=== PATIENT | female | born 1985 | race Caucasian/White ===

== ENCOUNTER 2025-05-25 12:09 | Emergency (ER) | payer MEDICAID ==
[~2025-05-25] VITALS: Ht 165.1 cm; Wt 68.0 kg
[~2025-05-25 12:09] MED LIST: HYDR2VIA2 IV; HYDR4TAB4 PO; ONDA4SYR IV; RIME75TA PO
[2025-05-25] MEDS ORDERED: HYDROMORPHONE 2 MG/1 ML DISP.SYRIN ONE ×2 (12:59→14:06)
[2025-05-25] MEDS ORDERED: ONDANSETRON 4 MG/2 ML VIAL ONE ×2 (12:59→14:06)
[2025-05-25] MEDS: HYDROMORPHONE 1 MG/1 ML DISP.SYRIN IV ONE ×2 (13:01→14:10)
[2025-05-25] MEDS: IV NORMAL SALINE 1000 ML BAG IV ONE (13:01)
[2025-05-25] MEDS: ONDANSETRON 4 MG/2 ML VIAL IV ONE ×2 (13:02→14:10)
[2025-05-25 13:11] LABS: *OCCULT BLOOD STOOL NEGATIVE (NEGATIVE)
[2025-05-25 13:12] LABS: PLATELET COUNT (AUTO) 247 K/uL (179-408); RED BLOOD CELL COUNT(AUTO) 4.06 MIL/uL (3.63-4.92); RED CELL DISTRIBUTION WIDTH 16.7 % (12.3-17.7); WHITE BLOOD COUNT (AUTO) 3.9 K/uL (3.8-11.8)
[2025-05-25] MEDS ORDERED: diphenhydrAMINE 50 MG/1 ML VIAL ONE ×2 (13:13→14:22)
[2025-05-25] MEDS ORDERED: FAMOTIDINE. 20 MG/2 ML VIAL IV ONE (13:13)
[2025-05-25] MEDS: FAMOTIDINE. 20 MG/2 ML VIAL IV ONE (13:18)
[2025-05-25] MEDS: diphenhydrAMINE 50 MG/1 ML VIAL IV ONE ×2 (13:18→14:24)
[2025-05-25 13:19] LABS: CREATININE 0.6 mg/dL (0.6-1.3); SODIUM SERUM 140 mmol/L (136-145); UREA NITROGEN, BLOOD 14 mg/dL (7-18)
[2025-05-25 13:25] LABS: ASPARTATE AMINOTRANSFERASE 22 U/L (15-37); TOTAL PROTEIN, SERUM 6.6 g/dL (6.4-8.2)
[2025-05-25 14:00] VITALS: BP 112/84
[2025-05-25] MEDS ORDERED: HYDR1LIQ PO (14:12)
[2025-05-25] MEDS ORDERED: [UNRECOGNIZED DRUG - CODE] RC (15:01)
[2025-05-25] MEDS ORDERED: DIAZ5TAB PR (15:04)
[2025-05-25 15:24] VITALS: BP 112/84; TEMP 98.5; O2SAT 99
== END 2025-05-25 15:10 | disposition home or self-care (01) ==
LOC: ER 12:09
DX: R10.9 Unspecified abdominal pain (principal); R19.7 Diarrhea, unspecified; R11.0 Nausea; C50.919 Malignant neoplasm of unspecified site of unspecified female breast; Z79.891 Long term (current) use of opiate analgesic; Z88.1 Allergy status to other antibiotic agents; Z88.6 Allergy status to analgesic agent; Z87.19 Personal history of other diseases of the digestive system; Z87.448 Personal history of other diseases of urinary system; Z87.42 Personal history of other diseases of the female genital tract; Z88.8 Allergy status to other drugs, medicaments and biological substances
CPT/HCPCS: 99284; 96374; 96375; 96361; 82272; 80076; 80048; 86625; 85025; 87493; 87046; 84484; 89055; 36415; 93005; 96376; 87015; 87899; 87427; J1200 ×2; J1308; J2405 ×2; J1171 ×2; J7040; A4606; A4663

== ENCOUNTER 2025-06-14 13:10 | Emergency (ER) | payer MEDICAID ==
[~2025-06-14] VITALS: Ht 165.1 cm; Wt 68.0 kg
[~2025-06-14 13:10] MED LIST changes: +DIAZ5TAB PR; +HYDR1LIQ PO; +[UNRECOGNIZED DRUG - CODE] RC
[2025-06-14] MEDS ORDERED: ONDANSETRON 4 MG/2 ML VIAL ONE ×2 (13:44→15:13)
[2025-06-14] MEDS ORDERED: HYDROMORPHONE 2 MG/1 ML DISP.SYRIN ONE ×2 (13:44→15:13)
[2025-06-14 13:45] LABS: PLATELET COUNT (AUTO) 182 K/uL (179-408); RED BLOOD CELL COUNT(AUTO) 3.44 MIL/uL (3.63-4.92); RED CELL DISTRIBUTION WIDTH 18.9 % (12.3-17.7); WHITE BLOOD COUNT (AUTO) 4.0 K/uL (3.8-11.8)
[2025-06-14 13:50] LABS: *BILIRUBIN,URIN NEGATIVE (NEGATIVE); *BLOOD, URINE 1+ (NEGATIVE); *CLARITY,URINE CLEAR (CLEAR); *COLOR,URINE YELLOW (YELLOW); *KETONES,URINE TRACE (NEGATIVE); *PROTEIN,URINE NEGATIVE (NEGATIVE); *UROBILINOGEN,URINE 0.2 E.U./dl (NORMAL); LEUKOCYTE ESTERASE ,URINE TRACE (NEGATIVE); NITRITE, URINE NEGATIVE (NEGATIVE); UGLUCOSE NEGATIVE (NEGATIVE)
[2025-06-14] MEDS: ONDANSETRON 4 MG/2 ML VIAL IV ONE ×3 (13:53→15:32)
[2025-06-14] MEDS: HYDROMORPHONE 1 MG/1 ML DISP.SYRIN IV ONE ×3 (13:53→15:32)
[2025-06-14] MEDS: IV NORMAL SALINE 1000 ML BAG IV ONE (13:53)
[2025-06-14 14:01] LABS: SQUAMOUS EPITHELIAL CELL,UR MODERATE /HPF (NONE SEEN)
[2025-06-14 14:08] LABS: CREATININE 0.9 mg/dL (0.6-1.3); SODIUM SERUM 141.0 mmol/L (136-145); UREA NITROGEN, BLOOD 17.0 mg/dL (7-18)
[2025-06-14] MEDS ORDERED: diphenhydrAMINE 50 MG/1 ML VIAL ONE ×2 (14:16→17:11)
[2025-06-14] MEDS: diphenhydrAMINE 50 MG/1 ML VIAL IV ONE ×2 (14:18→17:17)
[2025-06-14] MEDS ORDERED: CEFTRIAXONE /D5W 50ML IVPB **ER PYXIS IV ONE (14:20)
[2025-06-14 15:11] VITALS: BP 120/65
[2025-06-14] MEDS ORDERED: FAMOTIDINE. 20 MG/2 ML VIAL IV ONE (17:11)
[2025-06-14] MEDS: FAMOTIDINE. 20 MG/2 ML VIAL IV ONE (17:17)
[2025-06-14] MEDS ORDERED: ONDA4TAB11 PO (17:29)
[2025-06-14 17:38] VITALS: BP 123/61; O2SAT 97
== END 2025-06-14 17:38 | disposition home or self-care (01) ==
LOC: ER 13:10
DX: N39.0 Urinary tract infection, site not specified (principal); G89.4 Chronic pain syndrome; D64.9 Anemia, unspecified; R07.2 Precordial pain; R00.0 Tachycardia, unspecified; Z87.19 Personal history of other diseases of the digestive system; Z85.3 Personal history of malignant neoplasm of breast; Z88.1 Allergy status to other antibiotic agents; Z88.6 Allergy status to analgesic agent; Z88.8 Allergy status to other drugs, medicaments and biological substances; Z87.448 Personal history of other diseases of urinary system; Z87.42 Personal history of other diseases of the female genital tract
CPT/HCPCS: 99285; 96365; 96375; 96361; 71045; 80048; 81001; 85025; 87040; 87086; 36415; 93005; 96376; J0696; J1200 ×2; J1308; J2405 ×2; J1171 ×2; J7040; A4606; A4663

== ENCOUNTER 2025-08-19 15:24 | Emergency (ER) | payer OTHER ==
[~2025-08-19] VITALS: Ht 165.1 cm; Wt 70.3 kg
[~2025-08-19 15:24] MED LIST changes: +ONDA4TAB11 PO; +PROM12.512 RC
[2025-08-19] MEDS ORDERED: ONDANSETRON 4 MG/2 ML VIAL ONE ×2 (16:58→18:19)
[2025-08-19] MEDS ORDERED: HYDROMORPHONE 2 MG/1 ML DISP.SYRIN ONE ×2 (16:58→18:19)
[2025-08-19] MEDS ORDERED: diphenhydrAMINE 50 MG/1 ML VIAL ONE (16:58)
[2025-08-19] MEDS: diphenhydrAMINE 50 MG/1 ML VIAL IV ONE (17:07)
[2025-08-19] MEDS: HYDROMORPHONE 1 MG/1 ML DISP.SYRIN IV ONE ×2 (17:07→18:21)
[2025-08-19] MEDS: ONDANSETRON 4 MG/2 ML VIAL IV ONE ×2 (17:08→18:19)
[2025-08-19] MEDS ORDERED: DIAZEPAM 10 MG/2 ML DISP.SYRIN ONE (17:36)
[2025-08-19] MEDS: DIAZEPAM 10 MG/2 ML DISP.SYRIN IV ONE (17:38)
[2025-08-19 18:10] VITALS: BP 123/79
[2025-08-19] MEDS ORDERED: DIAZ5TAB4 PO ×2 (18:37→21:18)
[2025-08-19] MEDS ORDERED: HYDR2TAB4 PO ×2 (18:37→21:18)
[2025-08-19 19:17] VITALS: BP 122/80; O2SAT 98
== END 2025-08-19 19:18 | disposition home or self-care (01) ==
LOC: ER 15:34
DX: G43.909 Migraine, unspecified, not intractable, without status migrainosus (principal); R10.31 Right lower quadrant pain; D64.9 Anemia, unspecified; K51.90 Ulcerative colitis, unspecified, without complications; K85.90 Acute pancreatitis without necrosis or infection, unspecified; M32.9 Systemic lupus erythematosus, unspecified; Z85.3 Personal history of malignant neoplasm of breast; Z87.19 Personal history of other diseases of the digestive system; Z88.1 Allergy status to other antibiotic agents; Z88.6 Allergy status to analgesic agent
CPT/HCPCS: 99284; 96374; 96375; 96376; J2919; J3360; J1200; J2405 ×2; J1171 ×2; A4606; A4663

== ENCOUNTER 2025-08-21 15:19 | Emergency (ER) | payer OTHER ==
[~2025-08-21] VITALS: Ht 165.1 cm; Wt 70.3 kg
[~2025-08-21 15:19] MED LIST changes: +DIAZ5TAB4 PO; +HYDR2TAB4 PO
[2025-08-21 15:46] VITALS: BP 121/88
[2025-08-21] MEDS ORDERED: diphenhydrAMINE 50 MG/1 ML VIAL ONE (18:14)
[2025-08-21] MEDS ORDERED: HYDROMORPHONE 2 MG/1 ML DISP.SYRIN ONE (18:15)
[2025-08-21] MEDS ORDERED: FAMOTIDINE. 20 MG/2 ML VIAL IV ONE (18:15)
[2025-08-21] MEDS: HYDROMORPHONE 1 MG/1 ML DISP.SYRIN IV ONE (18:21)
[2025-08-21] MEDS: diphenhydrAMINE 50 MG/1 ML VIAL IV ONE (18:21)
[2025-08-21] MEDS: FAMOTIDINE. 20 MG/2 ML VIAL IV ONE (18:22)
[2025-08-21] MEDS ORDERED: DIAZ5TAB PO (18:34)
[2025-08-21] MEDS ORDERED: HYDR2TAB4 PO (18:34)
[2025-08-21 18:43] LABS: PLATELET COUNT (AUTO) 202 K/uL (179-408); RED BLOOD CELL COUNT(AUTO) 3.79 MIL/uL (3.63-4.92); RED CELL DISTRIBUTION WIDTH 18.3 % (12.3-17.7); WHITE BLOOD COUNT (AUTO) 5.1 K/uL (3.8-11.8)
[2025-08-21] MEDS ORDERED: DIAZEPAM 10 MG/2 ML DISP.SYRIN ONE (18:45)
[2025-08-21] MEDS: DIAZEPAM 10 MG/2 ML DISP.SYRIN IV ONE (18:47)
[2025-08-21 18:54] LABS: ASPARTATE AMINOTRANSFERASE 19.0 U/L (15-37); CREATININE 0.7 mg/dL (0.6-1.3); SODIUM SERUM 143.0 mmol/L (136-145); TOTAL PROTEIN, SERUM 6.5 g/dL (6.4-8.2); UREA NITROGEN, BLOOD 22.0 mg/dL (7-18)
[2025-08-21 19:39] VITALS: BP 121/88; O2SAT 99
== END 2025-08-21 19:39 | disposition home or self-care (01) ==
LOC: ER 15:19
DX: K86.1 Other chronic pancreatitis (principal); R10.9 Unspecified abdominal pain; G43.909 Migraine, unspecified, not intractable, without status migrainosus; G89.29 Other chronic pain; Z85.3 Personal history of malignant neoplasm of breast; Z87.19 Personal history of other diseases of the digestive system; Z88.1 Allergy status to other antibiotic agents; Z88.6 Allergy status to analgesic agent
CPT/HCPCS: 99284; 96374; 96375; 80053; 83690; 85025; 36415; J3360; J1200; J1308; J1171; A4606; A4663

== ENCOUNTER 2025-08-22 12:58 | Emergency (ER) | payer OTHER ==
[~2025-08-22] VITALS: Ht 165.1 cm; Wt 70.3 kg
[2025-08-22] MEDS: ONDANSETRON 4 MG/2 ML VIAL IV ONE (14:15)
[2025-08-22] MEDS ORDERED: diphenhydrAMINE 50 MG/1 ML VIAL ONE ×2 (14:36→17:50)
[2025-08-22] MEDS ORDERED: HYDROMORPHONE 2 MG/1 ML DISP.SYRIN ONE ×2 (14:37→16:42)
[2025-08-22] MEDS ORDERED: MAGNESIUM SULFATE/D5W 100 ML ONE (14:38)
[2025-08-22] MEDS: HYDROMORPHONE 1 MG/1 ML DISP.SYRIN IV ONE ×2 (15:16→16:49)
[2025-08-22] MEDS: IV NS 1000 ML 1,000 ML IV ONE (15:16)
[2025-08-22] MEDS: MAGNESIUM SULFATE/D5W 100 ML IV SCH (15:16)
[2025-08-22] MEDS: diphenhydrAMINE 50 MG/1 ML VIAL IV ONE ×2 (15:16→17:57)
[2025-08-22] MEDS ORDERED: MAGNESIUM SULFATE/D5W 200 ML ONE (16:38)
[2025-08-22] MEDS ORDERED: DIAZEPAM 10 MG/2 ML DISP.SYRIN ONE (16:41)
[2025-08-22] MEDS: DIAZEPAM 10 MG/2 ML DISP.SYRIN IV ONE (16:49)
[2025-08-22] MEDS ORDERED: FAMOTIDINE. 20 MG/2 ML VIAL IV ONE (17:51)
[2025-08-22] MEDS: FAMOTIDINE. 20 MG/2 ML VIAL IV ONE (17:57)
[2025-08-22 18:03] VITALS: BP 117/65
[2025-08-22 18:30] VITALS: BP 117/65; TEMP 98.6; O2SAT 96
== END 2025-08-22 18:31 | disposition home or self-care (01) ==
LOC: ER 12:58
DX: C50.919 Malignant neoplasm of unspecified site of unspecified female breast (principal); G43.909 Migraine, unspecified, not intractable, without status migrainosus; K22.0 Achalasia of cardia; R00.0 Tachycardia, unspecified; K85.90 Acute pancreatitis without necrosis or infection, unspecified; Z88.1 Allergy status to other antibiotic agents; Z88.6 Allergy status to analgesic agent
CPT/HCPCS: 99285; 96375; 96365; 96366; 96376; J3360; J1200 ×2; J1308; J3475 ×2; J1171 ×2; J7040; A4606; A4663

== ENCOUNTER 2025-08-27 12:12 | Emergency (ER) | payer OTHER ==
[~2025-08-27] VITALS: Ht 165.1 cm; Wt 70.3 kg
[~2025-08-27 12:12] MED LIST changes: +HYDR2VIA IV; -HYDR2VIA2 IV; +ONDA-243 PO; -ONDA4TAB11 PO
[2025-08-27 12:16] VITALS: BP 121/105
[2025-08-27] MEDS ORDERED: ONDANSETRON 4 MG/2 ML VIAL ONE (13:06)
[2025-08-27] MEDS ORDERED: HYDROMORPHONE 2 MG/1 ML DISP.SYRIN ONE ×2 (13:06→16:08)
[2025-08-27] MEDS ORDERED: diphenhydrAMINE 50 MG/1 ML VIAL ONE ×2 (13:06→16:08)
[2025-08-27] MEDS ORDERED: MAGNESIUM SULFATE/D5W 100 ML ONE (13:06)
[2025-08-27] MEDS: diphenhydrAMINE 50 MG/1 ML VIAL IV ONE ×2 (13:14→16:17)
[2025-08-27] MEDS: HYDROMORPHONE 1 MG/1 ML DISP.SYRIN IV ONE ×2 (13:14→16:16)
[2025-08-27] MEDS: IV NORMAL SALINE 1000 ML BAG IV ONE (13:14)
[2025-08-27] MEDS: ONDANSETRON 4 MG/2 ML VIAL IV ONE (13:15)
[2025-08-27] MEDS: MAGNESIUM SULFATE/D5W 100 ML IV SCH (13:15)
[2025-08-27 13:22] LABS: PLATELET COUNT (AUTO) 195 K/uL (179-408); RED BLOOD CELL COUNT(AUTO) 3.94 MIL/uL (3.63-4.92); RED CELL DISTRIBUTION WIDTH 17.0 % (12.3-17.7); WHITE BLOOD COUNT (AUTO) 4.1 K/uL (3.8-11.8)
[2025-08-27 13:27] LABS: CREATININE 0.6 mg/dL (0.6-1.3); SODIUM SERUM 144.0 mmol/L (136-145); UREA NITROGEN, BLOOD 15.0 mg/dL (7-18)
[2025-08-27 13:43] LABS: *BILIRUBIN,URIN NEGATIVE (NEGATIVE); *BLOOD, URINE NEGATIVE (NEGATIVE); *CLARITY,URINE CLEAR (CLEAR); *COLOR,URINE YELLOW (YELLOW); *KETONES,URINE TRACE (NEGATIVE); *PROTEIN,URINE NEGATIVE (NEGATIVE); *UROBILINOGEN,URINE 0.2 E.U./dl (NORMAL); LEUKOCYTE ESTERASE ,URINE NEGATIVE (NEGATIVE); NITRITE, URINE NEGATIVE (NEGATIVE); UGLUCOSE NEGATIVE (NEGATIVE)
[2025-08-27] MEDS ORDERED: MAGNESIUM SULFATE/D5W 200 ML ONE (13:48)
[2025-08-27 13:51] LABS: SQUAMOUS EPITHELIAL CELL,UR MODERATE /HPF (NONE SEEN)
[2025-08-27] MEDS ORDERED: FAMOTIDINE. 20 MG/2 ML VIAL IV ONE (16:08)
[2025-08-27] MEDS: FAMOTIDINE. 20 MG/2 ML VIAL IV ONE (16:17)
[2025-08-27 18:15] VITALS: BP 127/74; O2SAT 98
== END 2025-08-27 18:16 | disposition home or self-care (01) ==
LOC: ER 12:12
DX: G43.909 Migraine, unspecified, not intractable, without status migrainosus (principal); E86.0 Dehydration; R10.A2 Flank pain, left side; Z88.1 Allergy status to other antibiotic agents; Z88.6 Allergy status to analgesic agent
CPT/HCPCS: 36415; 83690; 85025; A4606; A4663; J1171; J1200; J1308; J2405; J3475; J7040

== ENCOUNTER 2025-09-09 12:27 | Emergency (ER) | payer OTHER ==
[~2025-09-09] VITALS: Ht 165.1 cm; Wt 77.1 kg
[2025-09-09] MEDS: IV NS 1000 ML 1,000 ML IV ONE (13:24)
[2025-09-09] MEDS ORDERED: diphenhydrAMINE 50 MG/1 ML VIAL ONE ×2 (13:31→16:09)
[2025-09-09] MEDS ORDERED: ONDANSETRON 4 MG/2 ML VIAL ONE (13:31)
[2025-09-09] MEDS ORDERED: FAMOTIDINE. 20 MG/2 ML VIAL IV ONE (13:32)
[2025-09-09] MEDS ORDERED: MAGNESIUM SULFATE/D5W 300 ML ONE (13:32)
[2025-09-09] MEDS ORDERED: HYDROMORPHONE 2 MG/1 ML DISP.SYRIN ONE ×2 (13:32→16:09)
[2025-09-09] MEDS: HYDROMORPHONE 1 MG/1 ML DISP.SYRIN IV ONE ×2 (13:35→16:14)
[2025-09-09] MEDS: diphenhydrAMINE 50 MG/1 ML VIAL IV ONE ×2 (13:37→16:15)
[2025-09-09] MEDS: ONDANSETRON 4 MG/2 ML VIAL IV ONE (13:40)
[2025-09-09] MEDS: FAMOTIDINE. 20 MG/2 ML VIAL IV ONE (13:45)
[2025-09-09] MEDS: MAGNESIUM SULFATE/D5W 100 ML IV SCH (13:47)
[2025-09-09] MEDS ORDERED: DIAZEPAM 10 MG/2 ML DISP.SYRIN ONE (14:23)
[2025-09-09] MEDS ORDERED: LIDOCAINE 5% PATCH TD ONE (14:27)
[2025-09-09] MEDS: DIAZEPAM 10 MG/2 ML DISP.SYRIN IV ONE (14:28)
[2025-09-09] MEDS: LIDOCAINE 5% PATCH TD ONE (14:31)
[2025-09-09 15:00] VITALS: BP 111/55
[2025-09-09] MEDS ORDERED: LIDO700A30 TP (17:28)
[2025-09-09] MEDS ORDERED: RIME75TA PO (17:28)
[2025-09-09] MEDS ORDERED: SCOP1PAT13 TP (17:28)
[2025-09-09 17:53] VITALS: BP 101/61; O2SAT 99
== END 2025-09-09 17:48 | disposition home or self-care (01) ==
LOC: ER 12:27
DX: G43.909 Migraine, unspecified, not intractable, without status migrainosus (principal); R11.2 Nausea with vomiting, unspecified; Z88.1 Allergy status to other antibiotic agents; Z88.6 Allergy status to analgesic agent
CPT/HCPCS: 99284; 96375; 96365; 96361; 96376; J3360; J1200 ×2; J1308; J3475; J2405; J1171 ×2; J7040; A4606; A4663

== ENCOUNTER 2025-09-11 11:33 | Emergency (ER) | payer OTHER ==
[~2025-09-11] VITALS: Ht 165.1 cm; Wt 77.1 kg
[~2025-09-11 11:33] MED LIST changes: +LIDO700A30 TP; +SCOP1PAT13 TP
[2025-09-11] MEDS ORDERED: MAGNESIUM SULFATE/D5W 200 ML ONE (12:29)
[2025-09-11] MEDS ORDERED: HYDROMORPHONE 1 MG/1 ML DISP.SYRIN ONE ×2 (12:29→12:37)
[2025-09-11] MEDS ORDERED: FAMOTIDINE. 20 MG/2 ML VIAL IV ONE (12:30)
[2025-09-11] MEDS ORDERED: ONDANSETRON 4 MG/2 ML VIAL ONE (12:31)
[2025-09-11] MEDS: FAMOTIDINE. 20 MG/2 ML VIAL IV ONE (12:32)
[2025-09-11] MEDS: MAGNESIUM SULFATE/D5W 100 ML IV SCH (12:33)
[2025-09-11] MEDS: ONDANSETRON 4 MG/2 ML VIAL IV ONE (12:33)
[2025-09-11] MEDS: HYDROMORPHONE 1 MG/1 ML DISP.SYRIN IV ONE ×2 (12:50→15:34)
[2025-09-11] MEDS ORDERED: diphenhydrAMINE 50 MG/1 ML VIAL ONE ×2 (12:52→15:32)
[2025-09-11] MEDS ORDERED: DIAZEPAM 10 MG/2 ML DISP.SYRIN ONE ×2 (12:53→12:55)
[2025-09-11] MEDS: DIAZEPAM 10 MG/2 ML DISP.SYRIN IV ONE (12:58)
[2025-09-11] MEDS: diphenhydrAMINE 50 MG/1 ML VIAL IV ONE ×2 (12:59→15:34)
[2025-09-11] MEDS ORDERED: HYDROMORPHONE 2 MG/1 ML DISP.SYRIN ONE (15:31)
[2025-09-11 16:17] VITALS: BP 118/82
[2025-09-11 17:56] VITALS: BP 124/80; TEMP 98.1; O2SAT 98
== END 2025-09-11 17:57 | disposition home or self-care (01) ==
LOC: ER 11:33
DX: G43.909 Migraine, unspecified, not intractable, without status migrainosus (principal); Z88.1 Allergy status to other antibiotic agents; Z88.6 Allergy status to analgesic agent
CPT/HCPCS: 99284; 96365; 96375; 96376; J3360; J1200 ×2; J1308; J3475; J2405; J1171 ×3; A4606; A4663

== ENCOUNTER 2025-09-13 15:42 | Emergency (ER) | payer OTHER ==
[~2025-09-13] VITALS: Ht 165.1 cm; Wt 77.1 kg
[2025-09-13 15:50] VITALS: BP 114/85; O2SAT 97
== END 2025-09-13 18:49 | disposition left against medical advice (07) ==
LOC: ER 15:45
DX: T82.534A Leakage of infusion catheter, initial encounter (principal); T82.594A Other mechanical complication of infusion catheter, initial encounter; F11.90 Opioid use, unspecified, uncomplicated; G43.909 Migraine, unspecified, not intractable, without status migrainosus; G89.4 Chronic pain syndrome; Z88.1 Allergy status to other antibiotic agents; Z88.6 Allergy status to analgesic agent; Y71.8 Miscellaneous cardiovascular devices associated with adverse incidents, not elsewhere classified; Y92.89 Other specified places as the place of occurrence of the external cause
CPT/HCPCS: A4606; A4663

== ENCOUNTER 2025-09-23 11:24 | Emergency (ER) | payer OTHER ==
[~2025-09-23] VITALS: Ht 167.6 cm; Wt 72.6 kg
[2025-09-23] MEDS ORDERED: diphenhydrAMINE 50 MG/1 ML VIAL ONE ×2 (13:20→15:04)
[2025-09-23] MEDS ORDERED: ONDANSETRON 4 MG/2 ML VIAL ONE (13:20)
[2025-09-23] MEDS ORDERED: HYDROMORPHONE 2 MG/1 ML DISP.SYRIN ONE ×2 (13:20→15:04)
[2025-09-23] MEDS ORDERED: FAMOTIDINE. 20 MG/2 ML VIAL IV ONE (13:20)
[2025-09-23] MEDS: diphenhydrAMINE 50 MG/1 ML VIAL IV ONE ×2 (13:34→15:12)
[2025-09-23] MEDS: HYDROMORPHONE 1 MG/1 ML DISP.SYRIN IV ONE ×2 (13:34→15:12)
[2025-09-23] MEDS: ONDANSETRON 4 MG/2 ML VIAL IV ONE (13:34)
[2025-09-23] MEDS: FAMOTIDINE. 20 MG/2 ML VIAL IV ONE (13:34)
[2025-09-23] MEDS ORDERED: MAGNESIUM SULFATE/D5W 100 ML ONE (13:49)
[2025-09-23] MEDS: MAGNESIUM SULFATE/D5W 100 ML IV SCH (14:02)
[2025-09-23] MEDS ORDERED: DIAZEPAM 10 MG/2 ML DISP.SYRIN ONE (15:05)
[2025-09-23] MEDS: DIAZEPAM 10 MG/2 ML DISP.SYRIN IV ONE (15:12)
[2025-09-23 15:13] VITALS: BP 112/86
[2025-09-23] MEDS ORDERED: SILV50CR32 TP (15:50)
[2025-09-23 16:38] VITALS: BP 112/86; O2SAT 98
== END 2025-09-23 16:39 | disposition home or self-care (01) ==
LOC: ER 11:24
DX: F11.90 Opioid use, unspecified, uncomplicated (principal); G43.909 Migraine, unspecified, not intractable, without status migrainosus; Z87.19 Personal history of other diseases of the digestive system; Z88.1 Allergy status to other antibiotic agents; Z88.6 Allergy status to analgesic agent
CPT/HCPCS: 99284; 96375; 96365; 96376; J3360; J1200 ×2; J1308; J3475; J2405; J1171 ×2; A4606; A4663; C1758